=== PATIENT | male | born 1965 | race Caucasian/White ===

== ENCOUNTER 2021-11-17 20:55 | Emergency (ER) | payer MEDICAID, OTHER ==
[~2021-11-17] VITALS: Ht 188 cm; Wt 64.9 kg
--- NOTE | 2021-11-17 21:07 | NUR ---
pt bib ra for fentanyl and meth overdose, pt sweating and tachycardia.
[2021-11-17 21:33] LABS: *AMPHETAMINE, URINE POSITIVE (NEGATIVE); *CANNABINOID, URINE NEGATIVE (NEGATIVE); *COCCAINE, URINE NEGATIVE (NEGATIVE); *OPIATE, URINE NEGATIVE (NEGATIVE); *PHENCYCLIDINE SCREEN,URINE NEGATIVE (NEGATIVE)
--- NOTE | 2021-11-17 22:01 | NUR ---
Dr. uZrita at bedside speaking with the pt.
[2021-11-17] MEDS ORDERED: IBUPROFEN 800 MG TABLET PO ONE (22:15)
[2021-11-17] MEDS ORDERED: IBUPROFEN 800 MG TABLET ONE (22:15)
--- NOTE | 2021-11-17 23:08 | NUR ---
Patient discharged to home in stable condition. Written and verbal after care instructions given. Patient verbalizes understanding of instructions. Stressed follow up or return to ER for worsening s/s.
[2021-11-17 23:30] VITALS: BP 120/80
== END 2021-11-17 23:30 | disposition home or self-care (01) ==
LOC: ER 20:56
DX: T43.621A Poisoning by amphetamines, accidental (unintentional), initial encounter (principal); R00.0 Tachycardia, unspecified; R61 Generalized hyperhidrosis; Y92.89 Other specified places as the place of occurrence of the external cause; G62.9 Polyneuropathy, unspecified; Z98.1 Arthrodesis status; Z88.0 Allergy status to penicillin; Z88.8 Allergy status to other drugs, medicaments and biological substances; F17.210 Nicotine dependence, cigarettes, uncomplicated
CPT/HCPCS: 93005; A4663